=== PATIENT | female | born 1995 | race Caucasian/White ===

== ENCOUNTER 2018-01-29 19:08 | Emergency (ER) | payer BC, SELFPAY ==
[2018-01-29] VITALS (25 sets, daily range): BP systolic 103–131; BP diastolic 54–81; PULSE 83–156; RESP 9–31; TEMP 36.5–36.8; O2SAT 96–100
--- NOTE | 2018-01-29 20:09 | DI.RPTCT_ITS ---
SYMPTOM/DIAGNOSIS: SEVERE HEADACHE, RIGHT SIDE. CONCERN FOR MASS, ANEURYSM, BLEED, VENOUS CRANIAL CT (WITHOUT CONTRAST): 01/29/[address] was performed. The ventricular system is normal in appearance. There is no evidence of an intracranial mass lesion. There is no evidence of a subdural or epidural hematoma. No focal areas of decreased attenuation are seen. CONCLUSION: Normal noncontrast Cranial CT.
--- NOTE | 2018-01-29 20:09 | DI.RPTCT_ITS ---
SYMPTOM/DIAGNOSIS: SEVERE HEADACHE RIGHT SIDE. CONCERN FOR MASS, ANEURYSM, BLEED, VENOUS CT ANGIOGRAPHY NECK AND HEAD: 01/29 CT angiography of the cervical cranial region was performed with intravenous infusion of 84 cc Omnipaque 350. The visualized lung apices are clear. The visualized pulmonary arterial circulation is unremarkable. The visualized aortic arch is of normal diameter with no evidence of dissection. The common internal and external carotid arteries appear normal. No evidence of aneurysm or stenosis. No evidence of dissection. Vertebral arteries and basilar artery appear normal. No evidence of aneurysm or dissection. Intracranial circulation in the reg[place] of [place] and major branch vessels appear normal. No evidence of aneurysm or stenosis. Anterior middle and posterior cerebral arteries are unremarkable. CONCLUSION: Negative CT angiography neck and head
[2018-01-29] MEDS: methylPREDNISolone SUCC 125 MG VIAL IVP (20:17)
[2018-01-29] MEDS: Metoclopramide 10 MG/2 ML VIAL IVP (20:17)
[2018-01-29] MEDS: Normal Saline 1,000 ML 1000 ML IV (20:17)
[2018-01-29] MEDS: diphenhydrAMINE 50 MG/ML VIAL 25 MG IVP (20:18)
[2018-01-29 20:35] LABS: Abs Immature Grans 0.01 k/cumm (0.0-0.09); Absolute Basophil Count 0.01 k/cumm (0.0-0.2); Absolute Eosinophil Count 0.02 k/cumm (0.0-0.7); Absolute Lymphocyte Count 2.06 k/cumm (1.2-3.4); Absolute Monocyte Count 0.58 k/cumm (0.11-0.7); Absolute Neutrophil Count 3.88 k/cumm (1.2-6.7); Basophils % 0.2; Eosinophils % 0.3; HCT 39.7 % (36.0-46.0); HGB 14.1 g/dL (12.0-15.5); Immature Grans % 0.2; Lymphocytes % 31.4; Mean Corp. HGB Concentration 35.5 g/dL (32.0-36.0); Mean Corpuscular Hemoglobin 30.1 pg (27.0-33.0); Mean Corpuscular Volume 84.6 fL (80-95); Mean Platelet Volume 10.9 fL (8.0-11.0); Monocytes % 8.8; Neutrophils % 59.1; Platelet Count 271 x1000/uL (130-400); RBC 4.69 m/cumm (4.00-5.20); RBC Distribution Width 11.7 % (11.7-14.6); White Blood Cell Count 6.56 k/cumm (4.4-10.8)
[2018-01-29 20:42] LABS: Bilirubin Moderate (Negative); Blood Negative (Negative); Clarity Sl Cloudy; Glucose Negative (Negative); Ketones 80 mg/dL (Negative); Leukocyte Esterase Negative (Negative); Nitrite Negative (Negative); Specific Gravity >= 1.030 (1.005-1.025); Urobilinogen 0.2 EU/dL (Up TO 0.2)
--- NOTE | 2018-01-29 20:51 | ED.GENADUL ---
Disposition Clinical Impression: Headache Disposition: HOME Condition: Good Instructions: General Headache (ED), Hypokalemia (ED) Additional Instructions: Please take the oral potassium as directed. Please eat a diet high in legumes, bananas, or prunes. If you notice any worsening of your symptoms, or any new symptoms such as vomiting, diarrhea, fever, chills, shortness of breath, chest pain, numbness, weakness, or fainting , please return immediately to the emergency department for reevaluation. Please follow up with your primary care provider as soon as possible for reassessment and reevaluation. As always, it was a pleasure participating in your medical care today. Prescriptions: Potassium Chloride [K-Dur] 20 meq PO DAILY #5 tabcr Referrals: Marbin Izquierdo MD [Primary Care Provider] - Medical Decision Making - Lab Data Laboratory Tests 01/29/18 19:47 WBC 6.56 RBC 4.69 Hgb 14.1 Hct 39.7 MCV 84.6 MCH 30.1 MCHC 35.5 RDW 11.7 Plt Count 271 MPV 10.9 Immature Gran % 0.2 Neutrophils % 59.1 Lymphocytes % 31.4 Monocytes % 8.8 Eosinophils % 0.3 Basophils % 0.2 Absolute Neutrophils 3.88 Absolute Lymphocytes 2.06 Absolute Monocytes 0.58 Absolute Eosinophils 0.02 Absolute Basophils 0.01 - Medical Decision Making This is a 22-year-old female who presents for evaluation of headache. She describes it as sharp and severe in the right side of her head. Is slightly atypical from her headaches that she has had in the past due to severity, and she states that she is not a regular headache person. She denies any trauma, or any other red flags concerning for severe intracranial etiology. She shows physical exam that is inconsistent with meningitis. We will check the patient's status, give her migraine cocktail and rehydrate her. Because of the atypical nature of this headache for the patient, as well as the presentation we will get a CT scan of the head to evaluate for any acute intracranial bleed. She is not currently on control, and so I feel less likely that this is being caused by a dural sinus thrombosis. 20: 18 EKG Rate 111, no ST elevations or depressions, no T wave inversions. Sinus tachycardia. Laboratory workup is benign. Repeat heart rate is 87 on monitor after her headache has been completely resolved by the migraine cocktail. The CT scan and CT angiogram of the head and neck reveal no acute process, per virtual radiology. No evidence of intracranial bleed, or abnormality. Since her symptoms onset has been evaluated within the first 6 hours, I feel that the CT scan is adequate for ruling out any bleed. In addition to this, I feel that her signs and symptoms are clinically inconsistent with a subarachnoid hemorrhage as her symptoms are totally resolved. Feel her symptoms most likely from an atypical migraine. There are no signs and symptoms clinically suggestive of meningitis either. We discussed red flags which returned the patient understands. She will be given oral potassium for home use. I am uncertain as to the etiology of her hypokalemia at this time but did recommend close follow-up with PCP. With no signs of fatal arrhythmia, correction of potassium here in the emergency department, I feel that she can be safely discharged home. I have extensively reviewed the treatment plan and discharge instructions with the patient and their family. I have addressed all patient concerns at this time. The patient and family was made aware of what symptoms to monitor for that would warrant a return to the emergency department. Discussed the plan with the patient and family, they demonstrate verbal understanding and agreement with our assessment and plan at this time. History of Present Illness - General Chief complaint: Headache Stated complaint: SUDDEN SHARP PAIN IN HEAD,NUMBNESS Time Seen by Provider: 01/29/18 20:06 - History of Present Illness Initial comments: This is a 22-year-old female with past medical history of distant Lyme disease who presents today for evaluation of headache. Patient states that roughly an hour and a half ago she had a gradual onset of a severe stabbing headache in the right side of her head. It is not affected by light or noise. She has no associated photophobia, neck pain, fever, chills, arm pain, vision changes. She denies any numbness tingling or weakness. She states that she has headaches like this once or twice in the past, but never this severe. Patient denies any red flags of polycystic kidney disease, family history of Marfan syndrome, Tracy-Danlos syndrome, or intracranial aneurysms or bleed. Patient has not taken any medications for this. She denies any other complaints at this time. She denies any other sick contacts, any IV or illicit drug use including cocaine, any surgeries recently. - Related Data Potassium Chloride [K-Dur] 20 meq PO DAILY #5 tabcr 01/29/18 Allergies Allergy/AdvReac Type Severity Reaction Status Date / Time No Known Allergies Allergy Unverified 01/29/18 22:57 Review of Systems Other: 10 point review of systems was performed, pertinent positives and negatives are noted in the history of present illness. Past Medical History - Past Medical History Lyme Dz, Chronic Fatigue Syndrome, Seizures, H/O [place], TMJ, Kidney Stones Surgical history: appendectomy COMPOUNDER history: no COMPOUNDER history, other (Patient does report taking the Plan B pill 1 week ago when an incident occurred where condom broke during sex) Family history: no significant family history - Social History Alcohol use: none Drug use: none General Exam - Other Other exam information: 1.Const: Well-nourished, Well-developed, appearing stated age 2.Eyes: PERRL, no conjunctival injection, and symmetrical lids. 3.ENT: Atraumatic external nose and ears. Moist MM. Neck: Symmetric, trachea midline, No thyromegaly. Patient demonstrates good movement of cervical neck. There is no nuchal rigidity, no nuchal tenderness. Patient is able to flex the neck without any difficulty or significant pain. Negative Kernig's and Brudzinski sign. 4.CVS: +S1/S2, No murmurs or gallops. Peripheral pulses 2+ and equal in all extremities. Brisk capillary refill in all extremities. 5.RESP: Unlabored respiratory effort. Clear to auscultation bilaterally. No wheezes rales or rhonchi 6.GI: Soft, Nontender/Nondistended, No hepatosplenomegaly. No guarding or rebound. 7.MSK: Normocephalic/Atraumatic, Extremities w/o deformity or ttp No cyanosis or clubbing, Normal movement of all extremities 8.Skin: Warm, Dry. No rashes or lesions. 9.Neuro: supervisor carbon electrodes II-XII grossly intact. Sensation grossly intact, no focal neurologic deficits. All 6 cardinal planes of vision or fully intact. No evidence of horizontal or vertical nystagmus. The patient demonstrated a normal [id number], good dexterity. There was no evidence of dysdiadochokinesia. Patient was able to ambulate without difficulty. There was no wide-based gait. Romberg, and [id number] are both normal on testing. Sensation was intact bilaterally as well as muscle strength bilaterally for all extremities. Patient was able to verbalize butter cup with no slurring, or miss pronunciation. 10.Psych: (AAO) x3. Appropriate mood and affect Course Vital Signs - 24 hr 01/29/18 19:14 Temperature 36.8 C Pulse 156 H Respiratory 16 Rate Blood Pressure 113/81 Pulse Oximetry 97
--- NOTE | 2018-01-29 20:54 | ED.GENADUL_ITS ---
Disposition Clinical Impression: Headache Disposition: HOME Condition: Good Instructions: General Headache (ED), Hypokalemia (ED) Additional Instructions: Please take the oral potassium as directed. Please eat a diet high in legumes, bananas, or prunes. If you notice any worsening of your symptoms, or any new symptoms such as vomiting, diarrhea, fever, chills, shortness of breath, chest pain, numbness, weakness, or fainting , please return immediately to the emergency department for reevaluation. Please follow up with your primary care provider as soon as possible for reassessment and reevaluation. As always, it was a pleasure participating in your medical care today. Prescriptions: Potassium Chloride [K-Dur] 20 meq PO DAILY #5 tabcr Referrals: Marbin Izquierdo MD [Primary Care Provider] - Medical Decision Making - Lab Data Laboratory Tests 01/29/18 19:47 WBC 6.56 RBC 4.69 Hgb 14.1 Hct 39.7 MCV 84.6 MCH 30.1 MCHC 35.5 RDW 11.7 Plt Count 271 MPV 10.9 Immature Gran % 0.2 Neutrophils % 59.1 Lymphocytes % 31.4 Monocytes % 8.8 Eosinophils % 0.3 Basophils % 0.2 Absolute Neutrophils 3.88 Absolute Lymphocytes 2.06 Absolute Monocytes 0.58 Absolute Eosinophils 0.02 Absolute Basophils 0.01 - Medical Decision Making This is a 22-year-old female who presents for evaluation of headache. She describes it as sharp and severe in the right side of her head. Is slightly atypical from her headaches that she has had in the past due to severity, and she states that she is not a regular headache person. She denies any trauma, or any other red flags concerning for severe intracranial etiology. She shows physical exam that is inconsistent with meningitis. We will check the patient's status, give her migraine cocktail and rehydrate her. Because of the atypical nature of this headache for the patient, as well as the presentation we will get a CT scan of the head to evaluate for any acute intracranial bleed. She is not currently on control, and so I feel less likely that this is being caused by a dural sinus thrombosis. 20: 18 EKG Rate 111, no ST elevations or depressions, no T wave inversions. Sinus tachycardia. Laboratory workup is benign. Repeat heart rate is 87 on monitor after her headache has been completely resolved by the migraine cocktail. The CT scan and CT angiogram of the head and neck reveal no acute process, per virtual radiology. No evidence of intracranial bleed, or abnormality. Since her symptoms onset has been evaluated within the first 6 hours, I feel that the CT scan is adequate for ruling out any bleed. In addition to this, I feel that her signs and symptoms are clinically inconsistent with a subarachnoid hemorrhage as her symptoms are totally resolved. Feel her symptoms most likely from an atypical migraine. There are no signs and symptoms clinically suggestive of meningitis either. We discussed red flags which returned the patient understands. She will be given oral potassium for home use. I am uncertain as to the etiology of her hypokalemia at this time but did recommend close follow-up with PCP. With no signs of fatal arrhythmia, correction of potassium here in the emergency department, I feel that she can be safely discharged home. I have extensively reviewed the treatment plan and discharge instructions with the patient and their family. I have addressed all patient concerns at this time. The patient and family was made aware of what symptoms to monitor for that would warrant a return to the emergency department. Discussed the plan with the patient and family, they demonstrate verbal understanding and agreement with our assessment and plan at this time. History of Present Illness - General Chief complaint: Headache Stated complaint: SUDDEN SHARP PAIN IN HEAD,NUMBNESS Time Seen by Provider: 01/29/18 20:06 - History of Present Illness Initial comments: This is a 22-year-old female with past medical history of distant Lyme disease who presents today for evaluation of headache. Patient states that roughly an hour and a half ago she had a gradual onset of a severe stabbing headache in the right side of her head. It is not affected by light or noise. She has no associated photophobia, neck pain, fever, chills, arm pain , vision changes. She denies any numbness tingling or weakness. She states that she has headaches like this once or twice in the past, but never this severe. Patient denies any red flags of polycystic kidney disease, family history of Marfan syndrome, Tracy-Danlos syndrome, or intracranial aneurysms or bleed. Patient has not taken any medications for this. She denies any other complaints at this time. She denies any other sick contacts, any IV or illicit drug use including cocaine, any surgeries recently. - Related Data Potassium Chloride [K-Dur] 20 meq PO DAILY #5 tabcr 01/29/18 Allergies Allergy/AdvReac Type Severity Reaction Status Date / Time No Known Allergies Allergy Unverified 01/29/18 22:57 Review of Systems Other: 10 point review of systems was performed, pertinent positives and negatives are noted in the history of present illness. Past Medical History - Past Medical History Lyme Dz, Chronic Fatigue Syndrome, Seizures, H/O [place], TMJ, Kidney Stones Surgical history: appendectomy CRM ADMINISTRATOR history: no CRM ADMINISTRATOR history, other (Patient does report taking the Plan B pill 1 week ago when an incident occurred where condom broke during sex) Family history: no significant family history - Social History Alcohol use: none Drug use: none General Exam - Other Other exam information: 1.Const: Well-nourished, Well-developed, appearing stated age 2.Eyes: PERRL, no conjunctival injection, and symmetrical lids. 3.ENT: Atraumatic external nose and ears. Moist MM. Neck: Symmetric, trachea midline, No thyromegaly. Patient demonstrates good movement of cervical neck. There is no nuchal rigidity, no nuchal tenderness. Patient is able to flex the neck without any difficulty or significant pain. Negative Kernig's and Brudzinski sign. 4.CVS: +S1/S2, No murmurs or gallops. Peripheral pulses 2+ and equal in all extremities. Brisk capillary refill in all extremities. 5.RESP: Unlabored respiratory effort. Clear to auscultation bilaterally. No wheezes rales or rhonchi 6.GI: Soft, Nontender/Nondistended, No hepatosplenomegaly. No guarding or rebound. 7.MSK: Normocephalic/Atraumatic, Extremities w/o deformity or ttp No cyanosis or clubbing, Normal movement of all extremities 8.Skin: Warm, Dry. No rashes or lesions. 9.Neuro: cigar making supervisor II-XII grossly intact. Sensation grossly intact, no focal neurologic deficits. All 6 cardinal planes of vision or fully intact. No evidence of horizontal or vertical nystagmus. The patient demonstrated a normal bvolsv-oaij-qirwjv, good dexterity. There was no evidence of dysdiadochokinesia. Patient was able to ambulate without difficulty. There was no wide-based gait. Romberg, and ktgn-pw-asyh are both normal on testing. Sensation was intact bilaterally as well as muscle strength bilaterally for all extremities. Patient was able to verbalize butter cup with no slurring, or miss pronunciation. 10.Psych: (AAO) x3. Appropriate mood and affect Course Vital Signs - 24 hr 01/29/18 19:14 Temperature 36.8 C Pulse 156 H Respiratory 16 Rate Blood Pressure 113/81 Pulse Oximetry 97
[2018-01-29 21:00] LABS: ALT 24 U/L (12-78); AST 20 U/L (15-37); Alkaline Phosphatase 52 U/L (46-116); Anion Gap 18.2 mmol/L (3-11); BUN 6 mg/dL (7-18); Bilirubin, Total 0.7 mg/dL (0.2-1.0); CO2 21.8 mmol/L (21.0-32.0); CREATININE 1.05 mg/dL (0.55-1.02); Calcium 8.9 mg/dL (8.5-10.1); Chloride 99 mmol/L (98-107); Glucose 78 mg/dL (70-100); Sodium 139 mmol/L (136-145); TSH 0.88 uIU/mL (0.358-3.74); Total Protein 7.9 g/dL (6.4-8.2)
[2018-01-29 21:00] LABS: Bacteria Few HPF (Negative); C & S Indicated? No/Sq. Contamination; Casts Negative LPF (Negative); Crystals Negative HPF (Negative); Epithelial Cells Many HPF (Negative); Mucus Negative (Negative); Other Cells Negative (Negative); RBC Negative (0-2)
[2018-01-29 21:01] LABS: HCG Qual (Serum) Negative
[2018-01-29 21:02] LABS: *AMPHETAMINES SCREEN URINE Negative (Negative); *BARBITURATES SCREEN URINE Negative (Negative); *BENZODIAZEPINES SCREEN URINE Negative (Negative); Cannabinoids THC Negative (Negative); Cocaine Screen,Urine Negative (Negative); METHADONE URINE SCREEN Negative (Negative); OPIATES URINE SCREEN Negative (Negative)
[2018-01-29 21:09] LABS: Troponin I < 0.02 ng/mL (0.00-0.06)
[2018-01-29 21:10] LABS: Potassium 2.7 mmol/L (3.5-5.1)
[2018-01-29 21:11] LABS: Tricyclic Antidepressants POSITIVE (Negative)
[2018-01-29] MEDS: Potassium Chloride 20 MEQ TABCR PO (21:20)
[2018-01-29] MEDS: MAGNESIUM SULFATE 2 GM/50 ML BAG IVPB (21:20)
[2018-01-29] MEDS: POTASSIUM CHLORIDE/0.9% NACL 1,000 ML 30 MEQ IV (21:34)
[2018-01-29] MEDS: Omnipaque 350 MG/ML 100 ML BTL IV (22:44)
--- NOTE | 2018-01-29 22:57 | DI.VRAD_ITS ---
EXAM: CT Head Without Intravenous Contrast EXAM DATE/TIME: 01/29/2018 8:12 PM CLINICAL HISTORY: 22 years old, female; Signs and symptoms; Other: Severe headache, right side, concern for mass, anyurism, bleed, venous; Patient HX: Concern for venous sinus thrombosis TECHNIQUE: Axial computed tomography images of the head/brain without intravenous contrast. All CT scans at this facility use at least one of these dose optimization techniques: automated exposure control; mA and/or kV adjustment per patient size (includes targeted exams where dose is matched to clinical indication); or iterative reconstruction. Coronal and sagittal reformatted images were created and reviewed. COMPARISON: CT - HEAD WITHOUT CONTRAST 2016-03-16 15:07 FINDINGS: Brain: There is no evidence of acute hemorrhage or mass effect. No significant white matter disease. No edema. Ventricles: Normal. No ventriculomegaly. Bones/joints: Normal. No acute fracture. Sinuses: Minimal mucosal thickening versus mucus retention cyst in the inferolateral left maxillary sinus, incompletely visualized. Paranasal sinuses are otherwise clear. Mastoid air cells: Normal as visualized. No mastoid effusion. Soft tissues: Normal. IMPRESSION: No acute intracranial abnormality. Dictated and Authenticated by: Murphy Metz MD. Ordering:LOBITO PENNY MD
--- NOTE | 2018-01-29 23:05 | DI.VRAD_ITS ---
EXAM: CT Angiography Head With Intravenous Contrast CLINICAL HISTORY: 22 years old, female; Signs and symptoms; Other: Severe headache, right side, concern for mass, anyurism, bleed, venous TECHNIQUE: Axial computed tomographic angiography images of the head with intravenous contrast using CT angiography protocol. All CT scans at this facility use at least one of these dose optimization techniques: automated exposure control; mA and/or kV adjustment per patient size (includes targeted exams where dose is matched to clinical indication); or iterative reconstruction. MIP reconstructed images were created and reviewed. Coronal reformatted images were created and reviewed. CONTRAST: 84 mL of omnipaque 350 administered intravenously. COMPARISON: No relevant prior studies available. FINDINGS: Right internal carotid artery: No acute findings. Intracranial segment is patent with no significant stenosis. No aneurysm. Right anterior cerebral artery: Unremarkable. No occlusion or significant stenosis. No aneurysm. Right middle cerebral artery: Unremarkable. No occlusion or significant stenosis. No aneurysm. Right posterior cerebral artery: Unremarkable. No occlusion or significant stenosis. No aneurysm. Right vertebral artery: Unremarkable as visualized. Left internal carotid artery: No acute findings. Intracranial segment is patent with no significant stenosis. No aneurysm. Left anterior cerebral artery: Unremarkable. No occlusion or significant stenosis. No aneurysm. Left middle cerebral artery: Unremarkable. No occlusion or significant stenosis. No aneurysm. Left posterior cerebral artery: Unremarkable. No occlusion or significant stenosis. No aneurysm. Left vertebral artery: Unremarkable as visualized. Basilar artery: Unremarkable. No occlusion or significant stenosis. No aneurysm. IMPRESSION: Normal head CTA. EXAM: CT Angiography Neck With Intravenous Contrast CLINICAL HISTORY: 22 years old, female; Signs and symptoms; Other: Severe headache, right side, concern for mass, anyurism, bleed, venous TECHNIQUE: Axial computed tomographic angiography images of the neck with intravenous contrast using CT angiography protocol. All CT scans at this facility use at least one of these dose optimization techniques: automated exposure control; mA and/or kV adjustment per patient size (includes targeted exams where dose is matched to clinical indication); or iterative reconstruction. MIP reconstructed images were created and reviewed. Coronal reformatted images were created and reviewed. CONTRAST: 84 mL of omnipaque 350 administered intravenously. 84 mL of omnipaque 350 administered intravenously. COMPARISON: CT - HEAD WITHOUT CONTRAST 2018-01-29 21:58 FINDINGS: VASCULATURE: Right common carotid artery: Unremarkable. No significant stenosis. No dissection or occlusion. Right internal carotid artery: Unremarkable. Extracranial segment is patent with no significant stenosis. No dissection or occlusion. Right external carotid artery: Unremarkable. No occlusion. Right vertebral artery: Unremarkable. No significant stenosis. No dissection or occlusion. Left common carotid artery: Unremarkable. No significant stenosis. No dissection or occlusion. Left internal carotid artery: Unremarkable. Extracranial segment is patent with no significant stenosis. No dissection or occlusion. Left external carotid artery: Unremarkable. No occlusion. Left vertebral artery: Unremarkable. No significant stenosis. No dissection or occlusion. NECK: Bones/joints: No acute fracture. No dislocation. Soft tissues: Unremarkable as visualized. No mass. CAROTID STENOSIS REFERENCE USING NASCET CRITERIA: % ICA stenosis = (1 - narrowest ICA diameter/diameter of distal cervical ICA) x 100. Mild - <50% stenosis. Moderate - 50-69% stenosis. Severe - 70-94% stenosis. Near occlusion - 95-99% stenosis. Occluded - 100% stenosis. IMPRESSION: Normal neck CTA. Dictated and Authenticated by: Murphy Metz MD. Ordering:LOBITO PENNY MD
== END 2018-01-29 23:45 | disposition home or self-care (01) ==
PROVIDERS: Emergency Provider Student in an Organized Health Care Education/Training Program; PCP Internal Medicine
DX: R51 Headache (principal); E87.6 Hypokalemia
CPT/HCPCS: 36415; 70496; 70498; 80053; 80307; 81025; 93005; 96361; 96365; 96368; 96375; 99285; 70450; 81003; 81015; 84443; 84484; 84703; 85025; 93010; J1200; J2765; J2930; J3490

== ENCOUNTER 2018-02-19 15:54 | Outpatient (REF) | payer BC, SELFPAY ==
[2018-02-19 23:23] LABS: Anion Gap 10.5 mmol/L (3-11); BUN 16 mg/dL (7-18); CO2 24.5 mmol/L (21.0-32.0); CREATININE 1.07 mg/dL (0.55-1.02); Calcium 8.7 mg/dL (8.5-10.1); Chloride 106 mmol/L (98-107); Glucose 76 mg/dL (70-100); Potassium 4.2 mmol/L (3.5-5.1); Sodium 141 mmol/L (136-145)
== END 2018-02-19 16:14 ==
LOC: NCHCN 15:54
PROVIDERS: PCP Internal Medicine; Visit Provider Internal Medicine
DX: R00.2 Palpitations (principal)
CPT/HCPCS: 80048

== ENCOUNTER 2018-02-25 08:06 | Outpatient (CLI) | payer BC, SELFPAY | END 2018-02-25 08:26 | PROVIDERS: PCP Internal Medicine; Visit Provider Internal Medicine | DX: R00.2 Palpitations (principal); I49.1 Atrial premature depolarization; I49.3 Ventricular premature depolarization | CPT/HCPCS: 93225 ==

== ENCOUNTER 2018-03-07 08:17 | Outpatient (CLI) | payer BC, SELFPAY ==
--- NOTE | 2018-03-12 16:01 | W.HOLTRPT ---
Holter Monitor Report Holter Monitor Note: Baseline rhythm sinus. Rare single PAC. No atrial fibrillation or SVT. Rare single PVC. No VT. No bradycardia. Symptoms: Chest pain noted twice during sinus rhythm 85, 87 bpm, no ST-T wave changes. Average heart rate 91 bpm.
== END 2018-03-07 08:37 ==
PROVIDERS: PCP Internal Medicine; Visit Provider Internal Medicine
DX: I49.1 Atrial premature depolarization (principal); I49.3 Ventricular premature depolarization
CPT/HCPCS: 93226

== ENCOUNTER 2021-08-04 17:36 | Emergency (ER) | payer BC, SELFPAY ==
[2021-08-04 17:42] VITALS: BP 153/94; PULSE 90; RESP 14; TEMP 36.6; O2SAT 100
--- NOTE | 2021-08-04 18:15 | DI.CT_ITS ---
Exam(s) CT CERVICAL SPINE WO EXAM: CT CERVICAL SPINE WO CLINICAL HISTORY: fall, c5-7 pain. TECHNIQUE: Imaging Protocol: Axial computed tomography images with coronal and sagittal reformatted images were created and reviewed FINDINGS: Bones: No acute fracture or subluxation. Soft Tissues: Unremarkable. Lung Apices: Clear. IMPRESSION: No acute fracture or subluxation in the cervical spine. RADIATION DOSE DELIVERED: 356.39mGy.cm Total DLP 356.39mGy.cm Total DLP 356.39mGy.cm Total DLP DATA REPOSITORY: All CT scans at this facility are submitted to the National Radiology Data Registry (NRDR) Dose Index Registry (DIR) with the [employer] (A[employer]). RADIATION OPTIMIZATION: All CT scans at this facility use at least one of these dose optimization te chniques: automated exposure control; mA and/or kV adjustment per patient size (includes targeted exa ms where dose is matched to clinical indication); or iterative reconstruction.
--- NOTE | 2021-08-04 18:15 | DI.RAD_ITS ---
Exam(s) XR SHOULDER LT COMPLETE 2+V EXAM: XR SHOULDER LT COMPLETE 2+V CLINICAL HISTORY: left shoulder injury. TECHNIQUE: 2D digital imaging was performed of the left shoulder. Five images were obtained. AP, Y and axillary views were obtained. COMPARISON: No exams were available for comparison FINDINGS: BONES: No acute fracture is present. No bony destructive lesion is seen. JOINTS: No dislocation present. SOFT TISSUE: Normal. IMPRESSION: Unremarkable radiographs of the left shoulder. DATA REPOSITORY: RADIATION DOSE DELIVERED:
--- NOTE | 2021-08-04 18:23 | ED.GENADUL_ITS ---
Discharge Plan Disposition Patient Disposition: HOME Condition: Stable Discharge Details Clinical Impression: Contusion of left shoulder, Cervical strain, Head injury Primary Care Provider: Marbin Izquierdo ED Provider: Emy Franco Home Meds and New Rx's Prescriptions: No Action norethindrone ac-eth estradiol [Microgestin 1.5/30 (21)] 1.5-30 mg-mcg tablet 1 tab PO DAILY Qty: 84 5RF Discharge Instructions Instructions: Cervical Strain (ED), Head Injury (ED), Contusion in Adults (ED) Additional Instructions: Ibuprofen and Tylenol as needed for discomfort Should he develop headache, vision change, uncontrolled vomiting, please return to the emergency room for reassessment You may wear your sling as needed for discomfort I continue to range shoulder so it does not become stiff Referrals: Marbin Izquierdo MD [Primary Care Provider] - Discharge Data Discharge Date/Time-TO BE ENTERED AT DEPARTURE: 08/04/21 21:13 Medical Decision Making Sling supplied with frozen shoulder precautions Cervical spine ctnegative per radiology interpretation in my review Ibuprofen and Tylenol as needed for discomfort Return precautions discussed and patient expressed understanding Left shoulder x-ray negative per radiology interpretation and my review I considered head CT, however patient is alert and oriented, pain, ambulatory with steady gait without any headache HPI General Date/Time Provider Initiated Documentation: 08/04/21 17:37 . HPI Narrative: This very pleasant 25-year-old female presents status post fall while on hover board. She fell forward hitting her left shoulder. She denies any additional pain complaints. She did hit her head but denies pain. She has pain with movement of her shoulder and slight movement pain of her neck. She is otherwise healthy and denies any coagulopathy. She denies any strength or sensation changes. She denies any fever or chills. She denies any dizziness or vision change. Related Data Home Medications Medication Instructions Recorded Confirmed norethindrone acetate 1.5 1 tab PO DAILY #84 tab 12/12/18 08/04/21 mg-ethinyl estradiol 30 mcg tablet (Microgestin) Previous Rx's Medication Instructions Recorded norethindrone acetate 1.5 1 tab PO DAILY #84 tab 12/12/18 mg-ethinyl estradiol 30 mcg tablet (Microgestin) Allergies Allergy/AdvReac Type Severity Reaction Status Date / Time tramadol AdvReac Intermediate nausea / Unverified 08/04/21 17:51 pass out General Stated Complaint: Trauma IRTIKA: 2 Review of Systems All systems reviewed & are unremarkable except as noted in HPI and below PFSH All Active Problems (Updated 08/04/21 @ 20:52 by DREW Olea) Contusion of left shoulder (Acute) Cervical strain (Acute) Head injury (Acute) History of contraception (Acute 03/31/13) Nexplanon resulted in BTB. OCPs better tolerated. Lyme disease (Acute 11/14/17) Medical History (Updated 08/04/21 @ 20:52 by DREW Olea) Breast pain, left chronic Lyme disease Contraception Hx of BTB on Nexplanon 2017 OCPs. 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 Family History Other Breast cancer Social History Smoking/Tobacco Use Status: Current every day Tobacco Type: e-cigarettes Smoking risk assessment performed?: Yes Alcohol Intake: current Alcohol Intake frequency: holidays/special occasions only Drug use: Never Do you feel safe at home: Yes Do you feel safe in your relationship?: Yes Female Reproductive History Menstrual control method: pills History History 0 Para Hx # Term Pregnancies Multiple births Hx # Pregnancies Ectopic pregnancies AB induced Hx Number of Living Children AB spontaneous Exam Const General: cooperative, comfortable and no acute distress HENMT Other: 1 inch hematoma to occiput, no crepitus No hemotympanum Eyes Pupils: PERRL Neck Other: No midline tenderness paraspinal tenderness Chest Chest: normal inspection of the chest Resp Effort & Inspection: normal respiratory effort Auscultation: clear to auscultation bilaterally GI Inspection: normal to inspection Other: Nontender abdominal exam Skin General skin exam: no rashes or lesions noted Neuro General: patient alert and patient oriented x3 Cranial Nerves: CN's II-XI intact bilaterally Other: GCS 15, strength and sensation intact distally Extrem General: normal to inspection Shoulder/upper arm images: 1. Tenderness to palpation, distal pulses intact Course Vital Signs Vital signs: Vital Signs Temperature 36.6 C 08/04/21 17:42 Pulse 90 08/04/21 17:42 Respiratory Rate 14 08/04/21 17:42 Blood Pressure 153/94 H 08/04/21 17:42 Pulse Oximetry 100 08/04/21 17:42 Temperature 36.6 C 08/04/21 17:42 Temperature Source Skin 08/04/21 17:42 Pulse 90 08/04/21 17:42 Respiratory Rate 14 08/04/21 17:42 Respiratory Effort 08/04/21 18:12 Respiratory Depth Normal 08/04/21 18:12 Respiratory Pattern Normal 08/04/21 18:12 Blood Pressure 153/94 H 08/04/21 17:42 Blood Pressure Position Sitting 08/04/21 17:42 Pulse Oximetry 100 08/04/21 17:42 Oxygen Delivery Method Room Air 08/04/21 17:42 Oxygen Flow Rate 0 08/04/21 17:42 Pain Level 7 08/04/21 17:42
[2021-08-04] MEDS: oxyCODONE 5 MG TAB PO (18:37)
--- NOTE | 2021-08-04 19:47 | DI.VRAD_ITS ---
PROCEDURE INFORMATION: Exam: CT Cervical Spine Without Contrast Exam date and time: 08/04/2021 6:23 PM Age: 25 years old Clinical indication: Injury or trauma; Other: Fall, c5-7 pain; Blunt trauma TECHNIQUE: Imaging protocol: Computed tomography images of the cervical spine without contrast. COMPARISON: Vascular^CTA HEAD NECK (Adult) 01/29/2018 10:19 PM FINDINGS: Bones/joints: No acute fracture. Normal alignment. Discs/Spinal canal/Neural foramina: No significant disc protrusion. No severe spinal canal stenosis. No significant neural foraminal narrowing. Lungs: Lung apices are normal. Soft tissues: Unremarkable. IMPRESSION: No acute findings. Dictated and Authenticated by: Nola Berger MD. Ordering:JAYLON Quevedo MD
--- NOTE | 2021-08-04 20:47 | DI.VRAD_ITS ---
PROCEDURE INFORMATION: Exam: XR Left Shoulder Exam date and time: 08/04/2021 6:23 PM Age: 25 years old Clinical indication: Other: Left shoulder injury TECHNIQUE: Imaging protocol: XR Left shoulder. Views: 2 or more views. COMPARISON: CT CERVICAL SPINE WO 08/04/2021 7:20 PM FINDINGS: Bones/joints: Normal. Soft tissues: Normal. IMPRESSION: No acute findings. Dictated and Authenticated by: Sha Valentine MD. Ordering:JAYLON Quevedo MD
[2021-08-04 21:15] VITALS: BP 141/81; PULSE 86; RESP 18; O2SAT 99
== END 2021-08-04 21:13 | disposition home or self-care (01) ==
PROVIDERS: Emergency Provider Physician Assistant; PCP Internal Medicine
DX: S40.012A Contusion of left shoulder, initial encounter (principal); S16.1XXA Strain of muscle, fascia and tendon at neck level, initial encounter; S09.8XXA Other specified injuries of head, initial encounter; V00.848A Other accident with standing micro-mobility pedestrian conveyance, initial encounter
CPT/HCPCS: 99284; 72125; 73030; 99283

== ENCOUNTER 2022-03-29 09:48 | Emergency (ER) | payer BC, SELFPAY ==
[2022-03-29 09:52] VITALS: BP 148/92; PULSE 105; RESP 18; TEMP 36.6; O2SAT 100
--- NOTE | 2022-03-29 10:34 | ED.GENADUL_ITS ---
Discharge Plan Disposition Patient Disposition: HOME Condition: Improving Discharge Details Clinical Impression: Headache Primary Care Provider: Marbin Izquierdo ED Provider: Deb Ghosh Home Meds and New Rx's Prescriptions: No Action norethindrone ac-eth estradiol [Microgestin 1.5 (21)] 1.5-30 mg-mcg tablet 1 tab PO DAILY Qty: 84 5RF sertraline 50 mg Tablet 75 mg PO DAILY Rx Instructions: one tablet whole and splits a second. Discharge Instructions Instructions: Migraine Headache (ED), General Headache (ED) Additional Instructions: Please return immediately to the emergency department if you develop any new or worsening symptoms, if your condition does not improve as expected, or if you become otherwise concerned. It is extremely important that you call soon as possible to make an appointment to be seen in follow-up for this visit by your primary care doctor. Referrals: Marbin Izquierdo MD [Primary Care Provider] - Medical Decision Making Concern for migraine, electrolyte derangement, dehydration, other. Exam/history at this time is not consistent with meningitis, subarachnoid hemorrhage, sepsis, central venous thrombosis. Plan for IV placement, IV fluid hydration, IV Compazine, IV Benadryl, screening labs. Will monitor and reassess. Patient reports complete resolution of symptoms after medication, rates her pain as 0 out of 10. Patient states that she is ready to go home. Labs reviewed, WBC 6.44, potassium 4.1, magnesium 1.8. I had a discussion with Patient regarding return to emergency department precautions, home care, and importance of outpatient follow-up. Pt verbalizes understanding of the plan and is amenable. Patient discharged to home with clear plan for outpatient follow-up. All questions were answered. Disposition decision was made weighing the risks and benefits of hospitalization versus outpatient treatment, the risk for further decompensation, and the patient's wishes. Medical Records Medical records reviewed: Yes I reviewed the patient's medical records. Lab Data Lab results reviewed: Yes I reviewed the patient's lab results. Labs: Laboratory Tests Range/Units 03/29/22 10 10:12 10:12 WBC (4.4-10.8) 10^3/uL 6.44 RBC (3.93-5.22) 10^6/uL 5.12 Hgb (11.2-15.7) g/dL 15.0 Hct (36.0-46.0) % 43.8 MCV (80-95) fL 86 MCH (27.0-33.0) pg 29.3 MCHC (32.0-36.0) % 34.2 RDW (11.7-14.6) % 12.0 Plt Count (130-400) 10^3/uL 337 MPV (8.0-11.0) fL 9.4 Immature Gran % 0.2 Neutrophils % 64.4 Lymphocytes % 28.0 Monocytes % 6.5 Eosinophils % 0.6 Basophils % 0.3 Nucleated RBC % (0.0-0.3) % 0.0 Absolute Neutrophils (1.2-6.7) 10^3/uL 4.15 Absolute Lymphocytes (1.2-3.4) 10^3/uL 1.80 Absolute Monocytes (0.1-0.8) 10^3/uL 0.42 Absolute Eosinophils (0.0-0.7) 10^3/uL 0.04 Absolute Basophils (0.0-0.2) 10^3/uL 0.02 Sodium (136-145) mmol/L 139 Potassium (3.5-5.1) mmol/L 4.1 Chloride (98-107) mmol/L 103 Carbon Dioxide (21.0-32.0) mmol/L 27.6 Anion Gap (3-11) mmol/L 8.4 BUN (7-18) mg/dL 14 Creatinine (0.55-1.02) mg/dL 0.9 Est GFR (CKD-EPI 2020) (mL/min/1.73m2) 90.98 Glucose (74-106) mg/dL 77 Calcium (8.5-10.1) mg/dL 9.1 Magnesium (1.8-2.4) mg/dL 1.8 Total Bilirubin (0.2-1.0) mg/dL 0.2 AST (15-37) U/L 19 ALT (14-59) U/L 22 Alkaline Phosphatase (46-116) U/L 55 Total Protein (6.4-8.2) g/dL 8.0 Albumin (3.4-5.0) g/dL 3.5 HPI General Mode of arrival: ambulatory . Date/Time Provider Initiated Documentation: 03/29/22 09:49 . Limitations to Documentation: no limitations . Information obtained by: patient, family, RN notes reviewed and old records reviewed . HPI Narrative: Onesimo Ellsworth is a 26-year-old woman without reported history of medical problems presenting to emergency department with headache. Patient reports that she has had 3-4 migraine headaches in the past, and states that they occur approximately once per year. Patient reports that she has presented here for migraines in the past (record review shows negative head CT 2015, 2017). Patient states that on 01/16/2022 she woke up in the afternoon from a nap and had headache similar in severity, quality, and location to prior migraines. Patient reports that pain has been constant since onset, but has been waxing and waning in severity. She reports that her symptoms are similar to prior migraine symptoms she has had in the past other than duration, as prior headaches have not lasted this long. Patient reports that she has been taking Tylenol, ibuprofen, and Excedrin migraine without relief. Patient reports the pain is located in the right occipital area and also behind her right eye. She denies any eye pain or visual changes. She denies any recent illness. Denies any other pain, fever, cough, shortness of breath, numbness, weakness, rash. Has been eating and drinking as usual for her. Denies alcohol use. Patient reports that in the past when she has come to the emergency department for headaches labs have been performed and at 1 point her potassium was significantly decreased (record review shows potassium 2.7 in 2018). Related Data Home Medications Medication Instructions Recorded Confirmed norethindrone acetate 1.5 1 tab PO DAILY #84 tabs 12/12/18 03/29/22 mg-ethinyl estradiol 30 mcg tablet (Microgestin) sertraline 50 mg tablet 75 mg PO DAILY 03/29/22 03/29/22 Previous Rx's Medication Instructions Recorded norethindrone acetate 1.5 1 tab PO DAILY #84 tabs 12/12/18 mg-ethinyl estradiol 30 mcg tablet (Microgestin) Allergies Allergy/AdvReac Type Severity Reaction Status Date / Time tramadol AdvReac Intermediate nausea / Unverified 03/29/22 09:56 pass out General Stated Complaint: Headache RITIKA: 3 Review of Systems Narrative: Constitutional: denies fevers Eyes: denies eye pain, vision changes ENT: denies ear pain, dental pain, sore throat Cardiovascular: denies chest pain Respiratory: denies SOB, cough GI: denies abdominal pain, vomiting, diarrhea : denies flank pain MSK: denies back pain, neck pain, arthralgias, myalgias Skin: denies rash Neuro: denies numbness, weakness, reports headache as per HPI PFSH All Active Problems (Updated 03/29/22 @ 13:17 by Deb Ghosh MD) Headache (Acute) History of contraception (Acute 03/31/13) Nexplanon resulted in BTB. OCPs better tolerated. Lyme disease (Acute 11/14/17) Medical History (Updated 03/29/22 @ 13:17 by Deb Ghosh MD) Breast pain, left chronic Lyme disease Contraception Hx of BTB on Nexplanon 2017 OCPs. 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 Family History Other Breast cancer Social History Smoking/Tobacco Use Status: Current every day Tobacco Type: e-cigarettes Smoking risk assessment performed?: Yes Alcohol Intake: current Alcohol Intake frequency: holidays/special occasions only Drug use: Daily Substance use type: marijuana Details: little at night to help with sleep Do you feel safe at home: Yes Do you feel safe in your relationship?: Yes Female Reproductive History Menstrual control method: pills History History 0 Para Hx # Term Pregnancies Multiple births Hx # Pregnancies Ectopic pregnancies AB induced Hx Number of Living Children AB spontaneous Exam Narrative Exam Narrative: Constitutional: well and [id number], pleasant, conversing normally HENT: head atraumatic/normocephalic/normal inspection, mucous membranes moist Eyes: conjunctiva normal, sclera normal, pupils 3mm b/l, EOMI, no nystagmus Neck: no stridor, supple, full painless ROM, trachea midline Resp: normal work of breathing, speaking in full sentences Cardio: normal rate, normal rhythm Skin: warm, dry, normal color, no rash Neuro: alert, not altered, cranial nerves II through XII intact, motor 5-5 throughout, normal tone Ext: Moving all extremities equally Psych: normal mood, normal affect, normal behavior Course Vital Signs Vital signs: Vital Signs Temperature 36.6 C 03/29/22 09:52 Pulse 105 H 03/29/22 09:52 Respiratory Rate 18 03/29/22 09:52 Blood Pressure 148/92 H 03/29/22 09:52 Pulse Oximetry 100 03/29/22 09:52 Temperature 36.6 C 03/29/22 09:52 Temperature Source Oral 03/29/22 09:52 Pulse 105 H 03/29/22 09:52 Respiratory Rate 18 03/29/22 09:52 Respiratory Effort Non-Labored 03/29/22 09:55 Blood Pressure 148/92 H 03/29/22 09:52 Blood Pressure Position Sitting 03/29/22 09:52 Pulse Oximetry 100 03/29/22 09:52 Oxygen Delivery Method Room Air 03/29/22 09:52 Oxygen Flow Rate 0 03/29/22 09:52 Pain Level 4 03/29/22 09:52 Lab/Test Results Lab/Test Results: POC- Test(urine) Negative
[2022-03-29 11:20] LABS: Abs Immature Grans 0.01 10^3/uL (0.0-0.06); Absolute Basophil Count 0.02 10^3/uL (0.0-0.2); Absolute Eosinophil Count 0.04 10^3/uL (0.0-0.7); Absolute Monocyte Count 0.42 10^3/uL (0.1-0.8); Absolute Neutrophil Count 4.15 10^3/uL (1.2-6.7); Basophils % 0.3; Eosinophils % 0.6; HCT 43.8 % (36.0-46.0); Immature Grans % 0.2; MCH 29.3 pg (27.0-33.0); MCHC 34.2 % (32.0-36.0); MCV 86 fL (80-95); MPV 9.4 fL (8.0-11.0); Monocytes % 6.5; Neutrophils % 64.4; Platelet Count 337 10^3/uL (130-400); RBC 5.12 10^6/uL (3.93-5.22); RDW-SD 37.4 fL; WBC 6.44 10^3/uL (4.4-10.8)
[2022-03-29] MEDS: Prochlorperazine 10 MG/2 ML VIAL IVP (11:20)
[2022-03-29] MEDS: Normal Saline 1,000 ML 1000 ML IV (11:25)
[2022-03-29] MEDS: diphenhydrAMINE 50 MG/ML VIAL 25 MG IVP (11:25)
[2022-03-29 11:37] LABS: ALT 22 U/L (14-59); AST 19 U/L (15-37); Albumin 3.5 g/dL (3.4-5.0); Alkaline Phosphatase 55 U/L (46-116); Anion Gap 8.4 mmol/L (3-11); BUN 14 mg/dL (7-18); Bilirubin, Total 0.2 mg/dL (0.2-1.0); CO2 27.6 mmol/L (21.0-32.0); CREATININE 0.9 mg/dL (0.55-1.02); Calcium 9.1 mg/dL (8.5-10.1); Chloride 103 mmol/L (98-107); Estimated GFR 90.98 (mL/min/1.73m2); Glucose 77 mg/dL (74-106); Magnesium 1.8 mg/dL (1.8-2.4); Potassium 4.1 mmol/L (3.5-5.1); Sodium 139 mmol/L (136-145)
[2022-03-29 13:25] VITALS: BP 137/86; PULSE 76; RESP 12; O2SAT 96
== END 2022-03-29 13:38 | disposition home or self-care (01) ==
PROVIDERS: Emergency Provider Student in an Organized Health Care Education/Training Program; PCP Internal Medicine
DX: R51.9 Headache, unspecified (principal); F17.290 Nicotine dependence, other tobacco product, uncomplicated
CPT/HCPCS: 80053; 81025; 96361; 96374; 96375; 99284; 83735; 85025; J0780; J1200

== ENCOUNTER 2023-04-11 14:58 | Emergency (ER) | payer SELFPAY ==
--- NOTE | 2023-04-11 15:00 | DI.RAD_ITS ---
Exam(s) XR ANKLE RT COMPLETE EXAM: XR ANKLE RT COMPLETE CLINICAL HISTORY: fall, ankle pain. TECHNIQUE: 2D digital imaging was performed. Three views. COMPARISON: No exams were available for comparison FINDINGS: BONES: No acute fracture is present. No bony destructive lesion is seen. A rounded bony density seen at the dorsum of the foot near the tarsal metatarsal joint has a chronic appearance and is likely se condary to prior trauma. JOINTS: The ankle mortise is normally aligned. SOFT TISSUE: Normal. IMPRESSION: No acute abnormality. DATA REPOSITORY: RADIATION DOSE DELIVERED:
[2023-04-11 15:03] VITALS: BP 149/111; PULSE 100; RESP 20; TEMP 36.8; O2SAT 99
--- NOTE | 2023-04-11 15:14 | W.ED.GENAD ---
Discharge Plan Disposition Patient Disposition: Home Condition: Good Discharge Details Clinical Impression: Ankle sprain Primary Care Provider: Ariana Martinez ED Provider: Crystal Rodgers Home Meds and New Rx's Prescriptions: No Action norethindrone ac-eth estradiol [Microgestin 1.5 (21)] 1.5-30 mg-mcg tablet 1 tab PO DAILY Qty: 84 5RF sertraline 50 mg Tablet 75 mg PO DAILY Hold Instructions: Pt Stopped/Never Started Rx Instructions: one tablet whole and splits a second. Discharge Instructions Instructions: Ankle Sprain (ED) Additional Instructions: Tylenol and ibuprofen for pain, follow the direction on the bottle. Ankle immobilizer for comfort Call your PCP tomorrow to schedule an appointment to follow up on your visit here. Return to the emergency department for new or worsening symptoms. Discharge Data Discharge Date/Time-TO BE ENTERED AT DEPARTURE: 04/11/23 17:10 Medical Decision Making 27yo F presenting with right ankle pain. History from patient and mother at bedside. Slipped, inverted ankle, and fell; no headstrike, no pain elsewhere. Tachycardiac and slightly hypertensive on arrival, suspect 2/t pain. On exam she appears to be in pain, both feet are cool the touch with slight cyanosis of the digits likely 2/t outside temperature; pulses are intact, no injury to left foot or ankle, will reassess after warm. Very low suspicion for limb ischemia or vascular injury; would not get advanced imaging/CT or labs at this time. Neurovascular intact RLE, able to actively range at ankle though is painful. PO OTC medications taken shortly before arrival, will allow additional time to take effect and reassess. Ankle XR independently reviewed, no displaced fracture on my view, agree with radiology read below. On reassessment pain improved though still severe, repeat exam with good color bilateral feet, warm and well perfused. Given 25mg of IM fentanyl with good effect. Placed in ankle immobilizer and ambulated, tolerated well. Discharged home; discharge instructions including return precautions were reviewed with patient who verbalized understanding. All questions were answered and they are in full agreement with the plan. Imaging Data Radiologic Study: Imaging: X-Ray Radiologist's impression: IMPRESSION: No acute abnormality. HPI General Mode of arrival: ambulatory. Date/Time Provider Initiated Documentation: 04/11/23 15:00. Limitations to Documentation: no limitations. Information obtained by: patient and family. HPI Narrative: 27yo F presenting with right ankle pain. History from patient and mother at bedside. Was getting down off a truck, slipped on wet leaves and right ankle inverted as she fell to the ground on her right side. No head strike or loss of consciousness. [place] a pop. Immediate pain. No numbness or tingling, able to move ankle in all directions though it feels tight and painful. Took 1g of tylenol and 1g of ibuprofen prior to arrival (~25 minutes ago) with no relief yet. No pain or injury elsewhere. She is otherwise in her usual state of health. Related Data Home Medications Medication Instructions Recorded Confirmed norethindrone acetate 1.5 1 tab PO DAILY #84 tabs 12/12/18 04/11/23 mg-ethinyl estradiol 30 mcg tablet (Microgestin) sertraline 50 mg tablet 75 mg PO DAILY 03/29/22 04/11/23 Previous Rx's Medication Instructions Recorded norethindrone acetate 1.5 1 tab PO DAILY #84 tabs 12/12/18 mg-ethinyl estradiol 30 mcg tablet (Microgestin) Allergies Allergy/AdvReac Type Severity Reaction Status Date / Time tramadol AdvReac Intermediate nausea / Unverified 04/11/23 15:07 pass out General Stated Complaint: Orthopedic RITIKA: 4 Review of Systems Narrative: see hPI PFSH All Active Problems (Updated 04/11/23 @ 16:58 by Crystal Rodgers MD) Ankle sprain (Acute) History of contraception (Acute 03/31/13) Nexplanon resulted in BTB. OCPs better tolerated. 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 Family History Other Breast cancer Social History Smoking/Tobacco Use Status: Current every day Tobacco Type: e-cigarettes Smoking risk assessment performed?: Yes Alcohol Intake: current Alcohol Intake frequency: holidays/special occasions only Drug use: Daily Substance use type: marijuana Details: little at night to help with sleep Do you feel safe at home: Yes Do you feel safe in your relationship?: Yes Female Reproductive History Menstrual control method: pills History History 0 Para Hx # Term Pregnancies Multiple births Hx # Pregnancies Ectopic pregnancies AB induced Hx Number of Living Children AB spontaneous Exam Narrative Exam Narrative: General: Alert, well appearing, well nourished, appears to be uncomfortable Head: Normocephalic, atraumatic Neck: Trachea midline, Neck supple. Cardiac: No central cyansois Resp: No respiratory distress. Speaking in full sentences Abd: Non-distended Extremities: No deformities. No peripheral edema. Feet cool the touch bilaterally with slight cyanosis of digits bilaterally, both slightly damp. RLE: Sensation and capillary refill intact throughout foot and all digits. +DP pulse. Able to range ankle in all directions though is painful. No bony tenderness to foot. Slight bony tenderness at medial malleous. No achilles tenderness. No signficant effusion. Abrasion to medial aspect of proximal right great toe, otherwise no lacerations, abrasions, or echymosis. Neurologic: GCS 15. Moves all extremities freely against gravity Course Vital Signs Vital signs: Vital Signs Temperature 36.8 C 04/11/23 15:03 Pulse 100 H 04/11/23 15:03 Respiratory Rate 20 04/11/23 15:03 Blood Pressure 149/111 H 04/11/23 15:03 Pulse Oximetry 99 04/11/23 15:03 Temperature 36.8 C 04/11/23 15:03 Pulse 100 H 04/11/23 15:03 Respiratory Rate 20 04/11/23 15:03 Respiratory Effort Normal 04/11/23 15:07 Blood Pressure 149/111 H 04/11/23 15:03 Blood Pressure Position Sitting 04/11/23 15:03 Pulse Oximetry 99 04/11/23 15:03 Pain Level 9 04/11/23 15:03
[2023-04-11 16:55] VITALS: BP 156/105; PULSE 103; TEMP 36.6; O2SAT 99
[2023-04-11] MEDS: fentaNYL 100 MCG/2 ML VIAL 25 MCG IM (17:10)
== END 2023-04-11 17:10 | disposition home or self-care (01) ==
PROVIDERS: Emergency Provider Student in an Organized Health Care Education/Training Program; PCP Nurse Practitioner Family
DX: S93.401A Sprain of unspecified ligament of right ankle, initial encounter; V58.4XXA Person boarding or alighting a pick-up truck or van injured in noncollision transport accident, initial encounter
CPT/HCPCS: 29515; 96372; 99284; 73610; 99283; J3010